=== PATIENT | male | born 1945 | race Caucasian/White ===

== ENCOUNTER 2016-12-07 09:13 | Outpatient (CLI) | payer MEDICARE, OTHER | END 2016-12-07 09:14 | disposition home or self-care (01) | DX: K76.0 Fatty (change of) liver, not elsewhere classified (principal); N28.1 Cyst of kidney, acquired ==

== ENCOUNTER 2017-05-13 09:52 | Outpatient (CLI) | payer MEDICARE, OTHER ==
[2017-05-13 18:42] LABS: BILIRUBIN,DIRECT 0.1 mg/dL (0.1-0.5); BILIRUBIN,TOTAL 0.9 mg/dL (0.2-1.0); TOTAL PROTEIN 7.3 g/dL (6.7-8.2)
== END 2017-05-13 09:53 | disposition home or self-care (01) ==
LOC: LAB.S 09:52
PROVIDERS: ATTEND Family Medicine
DX: R74.8 Abnormal levels of other serum enzymes (principal)
CPT/HCPCS: 36415; 80076

== ENCOUNTER 2017-08-19 07:38 | Outpatient (CLI) | payer MEDICARE, OTHER | END 2017-08-19 07:39 | disposition critical access hospital (66) | LOC: EMS 07:38 | PROVIDERS: ATTEND Surgery | DX: R42 Dizziness and giddiness (principal) | CPT/HCPCS: A0425; A0429 ==

== ENCOUNTER 2017-08-19 08:17 | Emergency (ER) | payer MEDICARE, OTHER ==
--- NOTE | 2017-08-19 09:41 | ED Physician Documentation ---
History of Present Illness - Stated complaint Stated Complaint: NECK PAIN - Chief complaint Chief Complaint: Back Pain - Additonal information Additional information: hx from pt 72 m hx traumatic fall several yr ago was recently doing some overhead work and his neck has been stiff and sore recently this AM was rolling his neck and then suddenly felt "dizzy" by which he means acutely off balance no focal numbness or weakness no vision hearing speech abn took some baby asa and magnesium sx somewhat better now feels somewhat better now otherwise in good health - no fever cough NVD Review of Systems Constitutional: denies: Fever, Chills Cardiac: denies: Chest pain / pressure Respiratory: denies: Dyspnea, Cough GI: denies: Abdominal Pain, Nausea, Vomiting Musculoskeletal: reports: Neck pain Neurologic: reports: Other ("dizzy"). denies: Focal weakness, Numbness, Difficulty speaking Endocrine: denies: Easy bruising / bleeding Immunocompromised: denies: Immunocompromised PD PAST MEDICAL HISTORY - Past Medical History Past Medical History: Yes Respiratory: Sleep apnea - Past Surgical History Past Surgical History: No - Present Medications Home Medications: Ambulatory Orders Medication Instructions Recorded Confirmed Anastrozole [Arimidex] 09/11/15 09/11/15 Testosterone 09/11/15 09/11/15 Lidocaine Patch 5% [Lidoderm Patch] 1 each TOP DAILY PRN #10 patch 08/19/17 Meclizine [Antivert] 25 mg PO Q6H PRN #20 tablet 08/19/17 traMADol [Ultram] 50 mg PO Q8H PRN #6 tablet 08/19/17 - Allergies Allergies/Adverse Reactions: Allergies Allergy/AdvReac Type Severity Reaction Status Date / Time No Known Drug Allergies Allergy Verified 08/19/17 08:40 - Social History Does the pt smoke?: No Smoking Status: Never smoker Does the pt have substance abuse?: No - POLST Patient has POLST: No PD ED PE NORMAL - Vitals Vital signs reviewed: Yes - General General: Alert and oriented X 3 - HEENT HEENT: PERRL, EOMI - Neck Neck: Supple, no meningeal sign, Other (no focal TTP) - Cardiac Cardiac: RRR, No murmur - Respiratory Respiratory: No respiratory distress, Clear bilaterally - Abdomen Abdomen: Soft, Non tender - Derm Derm: Normal color - Neuro Neuro: Alert and oriented X 3, meat cooler 2-12 intact, No motor deficit, No sensory deficit, Normal speech Results - Vitals Vitals: Vital Signs - 24 hr 08/19/17 08/19/17 08/19/17 08:22 08:30 09:00 Temperature 36.2 C L Heart Rate 73 68 62 Respiratory 20 18 20 Rate Blood Pressure 177/97 H 154/88 H 150/82 H O2 Saturation 99 99 99 08/19/17 08/19/17 08/19/17 10:28 12:18 15:07 Temperature 36.9 C 36.3 C L 37.1 C Heart Rate 58 L 68 68 Respiratory 18 16 16 Rate Blood Pressure 146/86 H 146/86 H 148/86 H O2 Saturation 98 97 100 08/19/17 16:21 Temperature 37.0 C Heart Rate 83 Respiratory 18 Rate Blood Pressure 146/87 H O2 Saturation 100 Oxygen O2 Source Room air - EKG (time done) 0941 Rate: Rate (enter#) (64) Rhythm: NSR [place]: Normal Ischemia: Normal ST segments, Non specific changes. No: ST elevation c/w ischemia Other comments: Other comments (NSR no fib eval for stroke sx) - Labs Labs: Laboratory Tests 08/19/17 08/19/17 09:55 09:55 WBC 5.8 RBC 5.70 Hgb 17.6 Hct 50.5 MCV 88.5 MCH 30.9 MCHC 34.9 RDW 13.8 Plt Count 174 MPV 7.0 L Neut # 4.3 Lymph # 1.1 L [place] # 0.5 Eos # 0.0 Baso # 0.0 Absolute Nucleated RBC 0.00 Nucleated RBC % 0.1 Sodium 139 Potassium 3.8 Chloride 103 Carbon Dioxide 24 Anion Gap 12.0 BUN 14 Creatinine 1.2 Estimated GFR (MDRD) 60 L Glucose 110 H Calcium 10.0 - Rads (name of study) CTH Radiology: See rad report (no acute) CTA neck Radiology: See rad report (somewhat limited by dental hardware but no dissection or pathogy seen) PD MEDICAL DECISION MAKING - ED course ED course: very long ER vist as pt could not lay down flat for CT 2/2 vertigo and feeling faint when supine after meclizine X 2 and some valium able to tolerate the CT by the time the reads were back all his sx were better and he was able to easily lay down sit stand walk and turn around s sx his neck still feels tight and he would like tramadol but otherwise better (no [facility] flag and only 1 prior ER visit for a fall 2 yr ago) Departure - Departure Disposition: 01 Home, Self Care Clinical Impression: Vertigo, Neck pain Condition: Good Instructions: ED Dizziness UKO, ED Neck Pain No Trauma Follow-Up: Maxi Clancy MD [Primary Care Provider] - (this week for a recheck if symptoms continue) Prescriptions: Lidocaine Patch 5% [Lidoderm Patch] 1 each TOP DAILY PRN #10 patch PRN Reason: Pain Meclizine [Antivert] 25 mg PO Q6H PRN #20 tablet PRN Reason: Dizziness traMADol [Ultram] 50 mg PO Q8H PRN #6 tablet PRN Reason: Severe Pain
[2017-08-19] MEDS ORDERED: IOPAMIDOL-300 100 ML VIAL ONE (09:45)
[2017-08-19 10:07] LABS: BASOPHILS % (AUTO) 0.2 %; EOSINOPHILS % (AUTO) 0.2 %; HCT - HEMATOCRIT 50.5 % (42.0-52.0); HGB - HEMOGLOBIN 17.6 g/dL (14.0-18.0); LYMPHOCYTES # (AUTO) 1.1 10^3/uL (1.5-3.5); LYMPHOCYTES % (AUTO) 18.1 %; MEAN CORPUSCULAR HEMOGLOBIN 30.9 pg (27.0-31.0); MEAN CORPUSCULAR HGB CONC 34.9 g/dL (32.0-36.0); MEAN CORPUSCULAR VOLUME 88.5 fL (80.0-94.0); MONOCYTES # (AUTO) 0.5 10^3/uL (0.0-1.0); NEUTROPHILS # (AUTO) 4.3 10^3/uL (1.5-6.6); NEUTROPHILS % (AUTO) 73.5 %; NUCLEATED RED BLOOD CELLS AUTO 0.1 /100WBC; RED CELL DISTRIBUTION WIDTH 13.8 % (12.0-15.0); UNCORRECTED WHITE BLOOD COUNT 5.8 x10^3/uL; WHITE BLOOD COUNT 5.8 x10^3/uL (4.8-10.8)
[2017-08-19 10:15] LABS: CREATININE 1.2 mg/dL (0.6-1.2); POTASSIUM 3.8 mmol/L (3.5-5.0)
[2017-08-19] MEDS ORDERED: MECLIZINE 12.5 MG TABLET PO STA ×2 (10:42→11:30)
[2017-08-19] MEDS ORDERED: diazePAM INJ 5 MG/ML SYRINGE IVP STA (12:35)
[2017-08-19] MEDS ORDERED: IOPAMIDOL-300 100 ML VIAL IVP ONE (14:28)
--- NOTE | 2017-08-19 14:51 | CT Preliminary Report ---
Exam: CT HEAD W/O IMPRESSION: Generalized age-related cortical atrophic changes without evidence of acute intracranial abnormality. [facility] SITE ID: [id number]
--- NOTE | 2017-08-19 15:01 | CT Report ---
EXAM: CT HEAD EXAM DATE: 08/19/2017 02:33 PM. CLINICAL HISTORY: Dizziness, neck pain, and difficulty with balance since this morning. COMPARISON: 02/08/2009. TECHNIQUE: Multiaxial CT images were obtained from the foramen magnum to the vertex. Reformats: Coron al. IV contrast: None. In accordance with CT protocol optimization, one or more of the following dose reduction techniques w ere utilized for this exam: automated exposure control, adjustment of mA and/or KV based on patient s ize, or use of iterative reconstructive technique. FINDINGS: Parenchyma: No intraparenchymal hemorrhage. No evidence of mass, midline shift, or CT findings of acu te infarction. Awan-white differentiation is distinct. Diffuse chronic microangiopathic white matter changes are evident. Extraaxial Spaces: Normal for age. No subdural or epidural collections identified. Ventricles: The ventricles and cortical sulci are enlarged, consistent with age-related tissue loss. Sinuses and orbits: Imaged paranasal sinuses, orbits, and mastoids show no significant abnormality. Bones: No evidence of fracture or calvarial defect. Other: None. IMPRESSION: Generalized age-related cortical atrophic changes without evidence of acute intracranial abnormality. [facility] Referring Provider Line: [phone] SITE ID: [id number]
--- NOTE | 2017-08-19 15:05 | CT Preliminary Report ---
Exam: CT NECK ANGIO Impression: 1. Extensive beam hardening artifact from metal dental hardware limits evaluation of the carotid and vertebral arteries in the upper neck. However, no definite dissection or other pathology is identifie d. 2. There is much better imaging of the carotid and vertebral arteries in the lower and mid neck witho ut evidence of dissection or focal stenosis. SITE ID: [id number]
--- NOTE | 2017-08-19 15:36 | CT Report ---
CT ANGIOGRAM NECK INDICATION: 72-year-old male with posterior neck pain and acute neurological symptoms. Concern for po ssible dissection. Please assess. TECHNIQUE: 80 mL of Isovue-300 contrast were injected at a rapid rate through a large bore, left antecubital int ravenous catheter. The neck was scanned helically and data was reconstructed into 0.5 mm axial images . In addition, MIP reconstructions have been generated in multiple projections to allow better assess ment of the extracranial carotid and vertebral arteries. Significant arterial stenoses will be assessed using NASCET measurements. In accordance with CT protocol optimization, one or more of the following dose reduction techniques w ere utilized for this exam: automated exposure control, adjustment of mA and/or KV based on patient s ize, or use of iterative reconstructive technique. COMPARISON: None. FINDINGS: There is normal branching of the aortic arch. Atherosclerotic changes are seen in the arch. No signif icant stenoses are demonstrated in the first-order, supra-aortic arteries. There is calcified plaque at the origin of the right subclavian artery without associated hemodynamically significant stenosis. Right carotid artery: The common coronary artery and carotid bifurcation are widely patent. There is fairly extensive beam hardening artifact from metal dental hardware that limits the proximal/mid cerv ical segment of the internal carotid artery. Grossly no pathology is demonstrated. Left carotid artery: The common carotid artery is widely patent. There is minor calcified plaque amina g the posterior wall at the carotid bifurcation without associated stenosis. Fairly extensive beam bey rdening artifact from metal dental hardware limits assessment of cervical segment of the internal car otid artery. No definite pathology is demonstrated. Right vertebral artery: There is calcified plaque at the origin without significant associated stenos is. The V1, V2 and V3 segments appear patent throughout. No dissection or focal stenosis is identifie d. Left vertebral artery: Minor calcified plaque of the origin without significant associated stenosis. The V2 and V3 segments are patent throughout. No evidence of occlusion or hemodynamically significant stenosis in imaged branches of the anterior o r posterior intracranial arterial circulations. IMPRESSION: 1. Extensive beam hardening artifact from metal dental hardware limits evaluation of the carotid and vertebral arteries in the upper neck. However, no definite dissection or other pathology is identifie d. 2. There is much better imaging of the carotid and vertebral arteries in the lower and mid neck witho ut evidence of dissection or focal stenosis. Referring Provider Line: [phone] SITE ID: [id number]
[2017-08-19 17:11] VITALS: BP 141/83
== END 2017-08-19 17:13 | disposition home or self-care (01) ==
LOC: ED 08:17
DX: R42 Dizziness and giddiness (principal); M54.2 Cervicalgia
CPT/HCPCS: 36415; 70450; 70498; 80048; 85025; 93005; 99283; 99284; A9270; Q9967

== ENCOUNTER 2019-05-01 15:16 | Outpatient (CLI) | payer MEDICARE, OTHER ==
[2019-05-01 17:52] LABS: BASOPHILS % (AUTO) 0.3 %; EOSINOPHILS # (AUTO) 0.1 10^3/uL (0.0-0.7); EOSINOPHILS % (AUTO) 1.3 %; HGB - HEMOGLOBIN 16.9 g/dL (14.0-18.0); LYMPHOCYTES # (AUTO) 1.9 10^3/uL (1.5-3.5); LYMPHOCYTES % (AUTO) 29.3 %; MEAN CORPUSCULAR HGB CONC 32.8 g/dL (32.0-36.0); MEAN CORPUSCULAR VOLUME 91.5 fL (80.0-94.0); MEAN PLATELET VOLUME 10.5 fL (7.4-11.4); MONOCYTES # (AUTO) 0.6 10^3/uL (0.0-1.0); MONOCYTES % (AUTO) 9.7 %; NEUTROPHILS # (AUTO) 3.7 10^3/uL (1.5-6.6); NEUTROPHILS % (AUTO) 59.2 %; PLT - PLATELET COUNT 174 10^3/uL (130-450); RED BLOOD COUNT 5.63 10^6/uL (4.70-6.10); RED CELL DISTRIBUTION WIDTH 13.7 % (12.0-15.0); WHITE BLOOD COUNT 6.3 x10^3/uL (4.8-10.8)
[2019-05-01 17:58] LABS: BILIRUBIN,URINE NEGATIVE (NEGATIVE); GLUCOSE, URINE (UA) NEGATIVE (NEGATIVE); KETONES,URINE (UA) NEGATIVE (NEGATIVE); LEUKOCYTE ESTERASE, URINE NEGATIVE (NEGATIVE); NITRITE,URINE NEGATIVE (NEGATIVE); OCCULT BLOOD,URINE NEGATIVE (NEGATIVE); PH,URINE 6.5 PH (5.0-7.5); PROTEIN,URINE NEGATIVE (NEGATIVE); UROBILINOGEN,URINE 0.2 (NORMAL) E.U./dL (NORMAL)
[2019-05-01 18:10] LABS: ALBUMIN 4.2 g/dL (3.2-5.5); ALBUMIN/GLOBULIN RATIO 1.4 (1.0-2.2); ALKALINE PHOSPHATASE 60 IU/L (42-121); ALT ALANINE AMINOTRANSFERASE 53 IU/L (10-60); AST ASPARTATE AMINOTRANSFERASE 36 IU/L (10-42); BILIRUBIN,TOTAL 0.8 mg/dL (0.2-1.0); BUN - BLOOD UREA NITROGEN 18 mg/dL (6-20); CALCIUM 9.2 mg/dL (8.5-10.3); CARBON DIOXIDE - CO2 26 mmol/L (21-32); CHLORIDE 105 mmol/L (101-111); CHOLESTEROL 235 mg/dL; CREATININE 1.3 mg/dL (0.6-1.2); GFR - MDRD 54 (>89); GLUCOSE 100 mg/dL (70-100); HDL CHOLESTEROL 39 mg/dL; LDL CHOLESTEROL,CALCULATED 153 mg/dL; LDL/HDL RATIO 3.9 (<3.6); SODIUM 140 mmol/L (135-145); TOTAL PROTEIN 7.3 g/dL (6.7-8.2); VLDL CHOLESTEROL 43 mg/dL
[2019-05-01 18:35] LABS: CLARITY,URINE CLEAR (CLEAR)
[2019-05-01 18:55] LABS: HB2 TOTAL 17.3 g/dL; HEMOGLOBIN A1C 0.67 g/dL; HEMOGLOBIN A1C % 5.7 % (4.6-6.2)
== END 2019-05-01 15:17 | disposition home or self-care (01) ==
LOC: LAB.S 15:16
PROVIDERS: ATTEND Family Medicine
DX: R60.0 Localized edema (principal); E66.9 Obesity, unspecified
CPT/HCPCS: 36415; 80053; 80061; 81001; 81003; 83036; 83721; 84443; 85025; 87086

== ENCOUNTER 2020-01-01 15:00 | Outpatient (CLI) | payer MEDICARE, OTHER ==
[2020-01-01 15:11] LABS: HGB - HEMOGLOBIN 17.6 g/dL (14.0-18.0); MEAN CORPUSCULAR HEMOGLOBIN 30.7 pg (27.0-31.0); MEAN CORPUSCULAR HGB CONC 34.2 g/dL (32.0-36.0); MEAN CORPUSCULAR VOLUME 89.7 fL (80.0-94.0); MEAN PLATELET VOLUME 8.8 fL (7.4-11.4); RED BLOOD COUNT 5.74 10^6/uL (4.70-6.10); RED CELL DISTRIBUTION WIDTH 13.5 % (12.0-15.0); WHITE BLOOD COUNT 6.4 x10^3/uL (4.8-10.8)
[2020-01-01 15:29] LABS: ALBUMIN 4.5 g/dL (3.2-5.5); ALBUMIN/GLOBULIN RATIO 1.5 (1.0-2.2); BILIRUBIN,TOTAL 0.6 mg/dL (0.2-1.0); CALCIUM 9.2 mg/dL (8.5-10.3); CREATININE 1.3 mg/dL (0.6-1.2); TOTAL PROTEIN 7.6 g/dL (6.7-8.2)
== END 2020-01-01 15:01 | disposition home or self-care (01) ==
LOC: LAB 15:00
PROVIDERS: ATTEND Family Medicine
DX: E83.119 Hemochromatosis, unspecified (principal)
CPT/HCPCS: 36415; 80053; 82728; 85027

== ENCOUNTER 2021-01-04 10:40 | Outpatient (CLI) | payer MEDICARE, OTHER ==
[2021-01-04 15:44] LABS: BUN - BLOOD UREA NITROGEN 16 mg/dL (6-20); CALCIUM 9.3 mg/dL (8.5-10.3); CARBON DIOXIDE - CO2 24 mmol/L (21-32); CHLORIDE 104 mmol/L (101-111); CHOL/HDL RATIO 4.4 (<5.0); CHOLESTEROL 240 mg/dL; CREATININE 1.2 mg/dL (0.6-1.2); GFR - MDRD 59 (>89); GLUCOSE 86 mg/dL (70-100); HDL CHOLESTEROL 54 mg/dL; LDL CHOLESTEROL,CALCULATED 160 mg/dL; POTASSIUM 4.2 mmol/L (3.5-5.0); SODIUM 139 mmol/L (135-145); TRIGLYCERIDES 132 mg/dL; VLDL CHOLESTEROL 26 mg/dL
[2021-01-04 18:30] LABS: BASOPHILS % (AUTO) 0.3 %; EOSINOPHILS # (AUTO) 0.1 10^3/uL (0.0-0.7); EOSINOPHILS % (AUTO) 1.7 %; HCT - HEMATOCRIT 50.1 % (42.0-52.0); HGB - HEMOGLOBIN 16.4 g/dL (14.0-18.0); LYMPHOCYTES # (AUTO) 1.6 10^3/uL (1.5-3.5); LYMPHOCYTES % (AUTO) 26.9 %; MEAN CORPUSCULAR HEMOGLOBIN 30.3 pg (27.0-31.0); MEAN CORPUSCULAR HGB CONC 32.7 g/dL (32.0-36.0); MEAN CORPUSCULAR VOLUME 92.6 fL (80.0-94.0); MEAN PLATELET VOLUME 9.3 fL (7.4-11.4); MONOCYTES # (AUTO) 0.8 10^3/uL (0.0-1.0); MONOCYTES % (AUTO) 12.5 %; NEUTROPHILS # (AUTO) 3.5 10^3/uL (1.5-6.6); NEUTROPHILS % (AUTO) 58.3 %; PLT - PLATELET COUNT 198 10^3/uL (130-450); RED BLOOD COUNT 5.41 10^6/uL (4.70-6.10); RED CELL DISTRIBUTION WIDTH 13.3 % (12.0-15.0)
== END 2021-01-04 10:41 | disposition home or self-care (01) ==
LOC: LAB.S 10:40
PROVIDERS: ATTEND Physician Assistant
DX: E78.5 Hyperlipidemia, unspecified (principal); R73.09 Other abnormal glucose; R97.20 Elevated prostate specific antigen [PSA]; G47.37 Central sleep apnea in conditions classified elsewhere; D75.1 Secondary polycythemia; R60.0 Localized edema
CPT/HCPCS: 36415; 80048; 80061; 83721; 83880; 84153; 85025

== ENCOUNTER 2021-04-04 13:56 | Outpatient (CLI) | payer MEDICARE, OTHER ==
[2021-04-04 19:52] LABS: BASOPHILS % (AUTO) 0.3 %; EOSINOPHILS # (AUTO) 0.1 10^3/uL (0.0-0.7); EOSINOPHILS % (AUTO) 2.2 %; HCT - HEMATOCRIT 48.8 % (42.0-52.0); LYMPHOCYTES # (AUTO) 1.9 10^3/uL (1.5-3.5); LYMPHOCYTES % (AUTO) 31.4 %; MEAN CORPUSCULAR HEMOGLOBIN 29.9 pg (27.0-31.0); MEAN CORPUSCULAR HGB CONC 32.8 g/dL (32.0-36.0); MEAN PLATELET VOLUME 9.2 fL (7.4-11.4); MONOCYTES # (AUTO) 0.5 10^3/uL (0.0-1.0); MONOCYTES % (AUTO) 8.3 %; NEUTROPHILS # (AUTO) 3.4 10^3/uL (1.5-6.6); NEUTROPHILS % (AUTO) 57.6 %; PLT - PLATELET COUNT 189 10^3/uL (130-450); RED BLOOD COUNT 5.36 10^6/uL (4.70-6.10); RED CELL DISTRIBUTION WIDTH 13.7 % (12.0-15.0); WHITE BLOOD COUNT 5.9 x10^3/uL (4.8-10.8)
[2021-04-04 20:10] LABS: ALBUMIN 4.2 g/dL (3.2-5.5); ALBUMIN/GLOBULIN RATIO 1.4 (1.0-2.2); BILIRUBIN,TOTAL 0.5 mg/dL (0.2-1.0); CALCIUM 8.9 mg/dL (8.5-10.3); CREATININE 1.1 mg/dL (0.6-1.2); POTASSIUM 4.3 mmol/L (3.5-5.0); TOTAL PROTEIN 7.2 g/dL (6.7-8.2)
[2021-04-04 20:20] LABS: PSA FREE 0.361 ng/mL (0.16-2.81)
[2021-04-04 20:21] LABS: PSA TOTAL 3.55 ng/mL (0.000-2.000)
== END 2021-04-04 13:57 | disposition home or self-care (01) ==
LOC: LAB.S 13:56
PROVIDERS: ATTEND Physician Assistant
DX: E78.5 Hyperlipidemia, unspecified (principal); R74.8 Abnormal levels of other serum enzymes; R97.20 Elevated prostate specific antigen [PSA]; D75.1 Secondary polycythemia
CPT/HCPCS: 36415; 80053; 83880; 84153; 84154; 85025

== ENCOUNTER 2021-10-16 08:00 | Outpatient (CLI) | payer MEDICARE, OTHER ==
--- NOTE | 2021-10-16 14:50 | XRAY Report ---
PROCEDURE: Hip w/Pelvis 2-3V RT INDICATIONS: RIGHT HIP AND KNEE PAIN TECHNIQUE: AP pelvis with lateral view(s) of the right hip(s). COMPARISON: None. FINDINGS: BONES/JOINTS: No acute, displaced fracture. No widening of the pubic symphysis. The sacroiliac joints are symmetric. The femoral heads are normal ly seated within the acetabulum. At least moderate arthrosis of the right hip with joint space loss a nd osteophytosis. Prominence of the right femoral head/neck junction. Mild to moderate arthrosis of t he left hip. SOFT TISSUES: No focal abnormality. IMPRESSION: 1.At least moderate arthrosis of the right hip as detailed above. Reviewed by: Clifton Cortez MD on 10/16/2021 2:49 PM PST Approved by: Clifton Cortez MD on 10/16/2021 2:49 PM PST Station ID: [id number]
--- NOTE | 2021-10-16 16:37 | XRAY Report ---
PROCEDURE: Knee 3 View RT INDICATIONS: RIGHT KNEE PAIN TECHNIQUE: 3 views of the right knee(s) were acquired. COMPARISON: None. FINDINGS: Bones: No fractures or dislocations. Mild tricompartmental osteoarthritis is seen more prominent in medial femoral tibial compartment. No suspicious bony lesions. Soft tissues: No joint effusion. No suspicious soft tissue calcifications. IMPRESSION: Mild tricompartmental osteoarthritis. No fracture or dislocation. No significant joint e ffusion. Reviewed by: Felipe Rai MD on 10/16/2021 4:36 PM PST Approved by: Felipe Rai MD on 10/16/2021 4:36 PM PST Station ID: [id number]
== END 2021-10-16 23:59 | disposition home or self-care (01) ==
LOC: DI.S 08:00
PROVIDERS: ATTEND Physician Assistant
DX: M17.11 Unilateral primary osteoarthritis, right knee (principal); M16.11 Unilateral primary osteoarthritis, right hip

== ENCOUNTER 2022-10-02 17:23 | Outpatient (CLI) | payer MEDICARE, OTHER ==
--- NOTE | 2022-10-03 19:23 | XRAY Report ---
PROCEDURE: Shoulder 2 View BILAT INDICATIONS: SHOULDER PAIN TECHNIQUE: 4 views of the shoulder were acquired. COMPARISON: None. FINDINGS: Bones: No fractures or dislocations. Moderate to severe acromioclavicular joint and glenohumeral tanvi nt osteoarthritic changes are noted bilaterally. No suspicious bony lesions. Visualized ribs appear intact. Soft tissues: No suspicious soft tissue calcifications. 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 No fracture or dislocation. No gross soft tissue abnormalities. Reviewed by: Felipe Love MD on 10/03/2022 7:21 PM PST Approved by: Felipe Love MD on 10/03/2022 7:21 PM PST Station ID: [id number]
== END 2022-10-02 17:24 | disposition home or self-care (01) ==
LOC: DI.S 17:23
PROVIDERS: ATTEND Registered Nurse
DX: M19.011 Primary osteoarthritis, right shoulder (principal); M19.012 Primary osteoarthritis, left shoulder

== ENCOUNTER 2022-10-11 14:48 | Outpatient (CLI) | payer MEDICARE, OTHER ==
[2022-10-11 19:44] LABS: BASOPHILS % (AUTO) 0.5 %; EOSINOPHILS # (AUTO) 0.2 10^3/uL (0.0-0.7); EOSINOPHILS % (AUTO) 3.3 %; HCT - HEMATOCRIT 52.3 % (42.0-52.0); HGB - HEMOGLOBIN 17.1 g/dL (14.0-18.0); LYMPHOCYTES # (AUTO) 1.8 10^3/uL (1.5-3.5); LYMPHOCYTES % (AUTO) 29.4 %; MEAN CORPUSCULAR HEMOGLOBIN 29.8 pg (27.0-31.0); MEAN CORPUSCULAR HGB CONC 32.7 g/dL (32.0-36.0); MEAN CORPUSCULAR VOLUME 91.1 fL (80.0-94.0); MEAN PLATELET VOLUME 9.1 fL (7.4-11.4); MONOCYTES # (AUTO) 0.7 10^3/uL (0.0-1.0); MONOCYTES % (AUTO) 10.7 %; NEUTROPHILS # (AUTO) 3.4 10^3/uL (1.5-6.6); NEUTROPHILS % (AUTO) 55.9 %; PLT - PLATELET COUNT 190 10^3/uL (130-450); RED BLOOD COUNT 5.74 10^6/uL (4.70-6.10); RED CELL DISTRIBUTION WIDTH 13.7 % (12.0-15.0); WHITE BLOOD COUNT 6.1 x10^3/uL (4.8-10.8)
[2022-10-11 20:31] LABS: ALKALINE PHOSPHATASE 74 IU/L (42-121); ALT ALANINE AMINOTRANSFERASE 36 IU/L (10-60); AST ASPARTATE AMINOTRANSFERASE 32 IU/L (10-42); CALCIUM 9.4 mg/dL (8.5-10.3); CARBON DIOXIDE - CO2 25 mmol/L (21-32); CHLORIDE 102 mmol/L (101-111); CHOLESTEROL 225 mg/dL; GLUCOSE 122 mg/dL (70-100); POTASSIUM 4.6 mmol/L (3.5-5.0); SODIUM 139 mmol/L (135-145)
[2022-10-11 20:32] LABS: THYROID STIMULATING HORMONE 1.21 uIU/mL (0.34-5.60)
[2022-10-11 21:02] LABS: ALBUMIN 4.2 g/dL (3.2-5.5); ALBUMIN/GLOBULIN RATIO 1.3 (1.0-2.2); BILIRUBIN,TOTAL 0.7 mg/dL (0.2-1.0); BUN - BLOOD UREA NITROGEN 17 mg/dL (6-20); CHOL/HDL RATIO 5.6 (<5.0); CREATININE 1.2 mg/dL (0.6-1.2); GFR - MDRD 59 (>89); HDL CHOLESTEROL 40 mg/dL; LDL CHOLESTEROL,CALCULATED 115 mg/dL; LDL/HDL RATIO 2.9 (<3.6); TOTAL PROTEIN 7.5 g/dL (6.7-8.2); TRIGLYCERIDES 352 mg/dL; VLDL CHOLESTEROL 70 mg/dL
== END 2022-10-11 14:49 | disposition home or self-care (01) ==
LOC: LAB.S 14:48
PROVIDERS: ATTEND Registered Nurse
DX: E78.5 Hyperlipidemia, unspecified (principal); Z79.899 Other long term (current) drug therapy; Z13.29 Encounter for screening for other suspected endocrine disorder
CPT/HCPCS: 36415; 80053; 80061; 83721; 84443; 85025

== ENCOUNTER 2023-02-05 08:00 | Outpatient (CLI) | payer MEDICARE, OTHER | END 2023-02-05 23:59 | disposition home or self-care (01) | LOC: LAB.S 08:00 | PROVIDERS: ATTEND Registered Nurse | DX: R07.0 Pain in throat (principal) | CPT/HCPCS: 87070 ==